=== PATIENT | male | born 1980 | race African-American/Black ===

== ENCOUNTER 2024-01-05 21:50 | Emergency (ER) | payer BC ==
[~2024-01-05] VITALS: Ht 190.5 cm; Wt 143.3 kg
[2024-01-06] MEDS: RABIES VACCINE (PCEC)/PF 1 EA KIT IM ONE (00:44)
[2024-01-06] MEDS ORDERED: CEPH500C2 PO (01:37)
[2024-01-06 01:39] VITALS: BP 152/89; TEMP 97.6; O2SAT 99
== END 2024-01-06 01:41 | disposition home or self-care (01) ==
LOC: ER 21:57
DX: S40.812A Abrasion of left upper arm, initial encounter (principal); S41.132A Puncture wound without foreign body of left upper arm, initial encounter; I10 Essential (primary) hypertension; W54.0XXA Bitten by dog, initial encounter; Y93.89 Activity, other specified; Y92.89 Other specified places as the place of occurrence of the external cause; Y99.8 Other external cause status